=== PATIENT | male | born 1940 | race Caucasian/White ===

== ENCOUNTER 2017-10-03 11:56 | Inpatient (IN) | payer OTHER, MEDICARE ==
[~2017-10-03] VITALS: Ht 6374.2 cm; Wt 113.0 kg
[2017-10-03 15:24] LABS: BASOPHILS % (AUTO) 0.3 % (0-1); EOSINOPHILS # (AUTO) 0.4 X10'3 (0-0.9); EOSINOPHILS % (AUTO) 5.2 % (0-6); HEMATOCRIT 43.8 % (42.0-52.0); HEMOGLOBIN 14.7 g/dl (14.0-17.9); LYMPHOCYTES # (AUTO) 1.7 X10'3 (1.1-4.8); LYMPHOCYTES % (AUTO) 23.3 % (21-51); MEAN CORPUSCULAR HEMOGLOBIN 30.5 PG (27.0-31.0); MEAN CORPUSCULAR HGB CONC 33.6 % (33.0-36.5); MEAN CORPUSCULAR VOLUME 90.6 FL (78-98); MEAN PLATELET VOLUME 8.8 FL (7.4-10.4); MONOCYTES # (AUTO) 0.6 X10'3 (0-0.9); MONOCYTES % (AUTO) 8.3 % (2-12); NEUTROPHILS # (AUTO) 4.6 X10'3 (1.8-7.7); NEUTROPHILS % (AUTO) 62.9 % (42-75); PLATELET COUNT 216 X10'3 (140-440); RED BLOOD COUNT 4.83 X10'6 (4.70-6.10); RED CELL DISTRIBUTION WIDTH 13.8 % (11.5-14.5); WHITE BLOOD COUNT 7.3 X10'3 (4.5-11.0)
[2017-10-03 15:36] LABS: PARTIAL THROMBOPLASTIN TIME 26 SECONDS (22-32); PROTHROMBIN TIME 10.6 SECONDS (9.0-12.0)
[2017-10-03 15:42] LABS: ALANINE AMINOTRANSFERASE 32 U/L (12-78); ALBUMIN/GLOBULIN RATIO 0.8 (1.1-1.5); ALKALINE PHOSPHATASE 52 IU/L (46-116); ANION GAP 7 (8-16); ASPARTATE AMINO TRANSFERASE 20 U/L (10-37); BILIRUBIN,TOTAL 0.5 MG/DL (0.1-1.0); BLOOD UREA NITROGEN 15 MG/DL (7-18); BUN/CREATININE RATIO 14.4 (5.4-32.0); CALCIUM 8.9 MG/DL (8.5-10.1); CHLORIDE 106 MMOL/L (99-107); CREATININE 1.04 MG/DL (0.60-1.10); GLUCOSE 116 MG/DL (70-104); POTASSIUM 4.1 MMOL/L (3.5-5.1); SODIUM 143 MMOL/L (135-145); TOTAL CARBON DIOXIDE 29.6 MMOL/L (24-32); TOTAL PROTEIN 6.7 G/DL (6.4-8.2); eGFR 69 ML/MIN
[2017-10-03] MEDS ORDERED: HYDROmorphone inj. 0.5 MG/0.5 ML DISP.SYRIN IV PRN ×2 (18:05)
[2017-10-03] MEDS ORDERED: bisacodyl 10mg suppository rectal RC PRN (18:05)
[2017-10-03] MEDS ORDERED: insulin Lispro (HumaLOG) vial - multi-dose SQ SCH (18:05)
[2017-10-03] MEDS ORDERED: ondansetron/PF 4mg/2ml inj IV PRN (18:05)
[2017-10-03] MEDS ORDERED: mag hydrox/Alum hydrox/simeth 30ml oral suspension PO PRN (18:05)
[2017-10-03] MEDS ORDERED: HYDROcodone/acetaminophen 10/325mg tab PO PRN (18:05)
[2017-10-03] MEDS ORDERED: glucagon, human recombinant 1mg kit SUBCUT PRN (18:05)
[2017-10-03] MEDS ORDERED: heparin 10,000 units/1 ML INJ IV PRN (18:05)
[2017-10-03] MEDS ORDERED: dextrose ORAL solution 15 GM/59 ML bottle PO PRN ×2 (18:05)
[2017-10-03] MEDS ORDERED: morphine 4 MG/ML inj SYRINge IV PRN ×2 (18:05)
[2017-10-03] MEDS ORDERED: HYDROcodone/acetaminophen 5mg/325mg tablet PO PRN (18:05)
[2017-10-03] MEDS ORDERED: metoclopramide 5 mg/ml inj IV PRN (18:05)
[2017-10-03] MEDS ORDERED: MESSAGE TO PHARMACY PO ONE (18:05)
[2017-10-03] MEDS ORDERED: diphenhydrAMINE 25mg capsule PO PRN (18:05)
[2017-10-03] MEDS ORDERED: acetaminophen 650mg rectal suppository RC PRN (18:05)
[2017-10-03] MEDS ORDERED: magnesium hydroxide 30ml (MOM) UD suspension PO PRN (18:05)
[2017-10-03] MEDS ORDERED: heparin 10,000 units/1 ML INJ IV ONE (18:05)
[2017-10-03] MEDS ORDERED: acetaminophen 325mg tablet PO PRN (18:05)
[2017-10-03] MEDS ORDERED: diphenhydrAMINE 50 mg/ml inj IV PRN (18:05)
[2017-10-03] MEDS ORDERED: dextrose 50%-water 50ml dispensing syringe IV PRN ×2 (18:05)
[2017-10-03] MEDS: normal saline 1000ml 1,000 ML IV SCH (19:14)
[2017-10-03 19:16] LABS: MAGNESIUM 1.5 MG/DL (1.5-2.4)
[2017-10-03] MEDS ORDERED: temazepam 15mg capsule PO PRN (21:00)
[2017-10-03] MEDS: docusate sod 100mg capsule PO SCH (21:20)
[2017-10-03 21:32] LABS: CLARITY,URINE CLEAR (Clear); COLOR,URINE YELLOW (Yellow); GLUCOSE, URINE NEGATIVE (Neg); KETONES,URINE TRACE mg/dl (Neg); LEUKOCYTE ESTERASE ,URINE NEGATIVE (Neg); NITRITES, URINE NEGATIVE (Neg); OCCULT BLOOD,URINE NEGATIVE (Neg); PROTEIN,URINE NEGATIVE (Neg); UA COLLECTION TYPE NON-SPECIFIED; UROBILINOGEN,URINE 0.2 E.U/dL (0.2-1.0)
[2017-10-03] MEDS ORDERED: FURO-150 PO (22:14)
[2017-10-03] MEDS ORDERED: POTA10CA44 PO (22:14)
[2017-10-03] MEDS ORDERED: METO25TA6 PO (22:14)
[2017-10-03] MEDS ORDERED: METF500T4 PO (22:18)
[2017-10-03] MEDS ORDERED: TERA5CAP4 PO (22:20)
[2017-10-03] MEDS ORDERED: GLIP10TA11 PO (22:21)
[2017-10-03] MEDS ORDERED: GABA-532 PO (22:22)
[2017-10-03] MEDS ORDERED: OMEP20TA5 PO (22:24)
[2017-10-04 01:51] LABS: BASOPHILS % (AUTO) 0.3 % (0-1); EOSINOPHILS # (AUTO) 0.6 X10'3 (0-0.9); EOSINOPHILS % (AUTO) 7.9 % (0-6); HEMATOCRIT 41.3 % (42.0-52.0); LYMPHOCYTES # (AUTO) 2.8 X10'3 (1.1-4.8); LYMPHOCYTES % (AUTO) 33.9 % (21-51); MEAN CORPUSCULAR HEMOGLOBIN 30.9 PG (27.0-31.0); MEAN CORPUSCULAR HGB CONC 33.9 % (33.0-36.5); MEAN CORPUSCULAR VOLUME 91.1 FL (78-98); MEAN PLATELET VOLUME 9.3 FL (7.4-10.4); MONOCYTES # (AUTO) 0.8 X10'3 (0-0.9); MONOCYTES % (AUTO) 9.8 % (2-12); NEUTROPHILS # (AUTO) 3.9 X10'3 (1.8-7.7); NEUTROPHILS % (AUTO) 48.1 % (42-75); PLATELET COUNT 208 X10'3 (140-440); RED BLOOD COUNT 4.54 X10'6 (4.70-6.10); RED CELL DISTRIBUTION WIDTH 13.6 % (11.5-14.5); WHITE BLOOD COUNT 8.2 X10'3 (4.5-11.0)
[2017-10-04 01:54] LABS: ALANINE AMINOTRANSFERASE 30 U/L (12-78); ALBUMIN 2.7 G/DL (3.4-5.0); ALBUMIN/GLOBULIN RATIO 0.8 (1.1-1.5); ALKALINE PHOSPHATASE 48 IU/L (46-116); ANION GAP 6 (8-16); ASPARTATE AMINO TRANSFERASE 18 U/L (10-37); BILIRUBIN,TOTAL 0.4 MG/DL (0.1-1.0); BLOOD UREA NITROGEN 17 MG/DL (7-18); BUN/CREATININE RATIO 15.6 (5.4-32.0); CALCIUM 8.7 MG/DL (8.5-10.1); CHLORIDE 107 MMOL/L (99-107); CHOL/HDL RATIO 4.2 (0.00-4.99); CHOLESTEROL 154 MG/DL (0-200); CREATININE 1.09 MG/DL (0.60-1.10); GLUCOSE 134 MG/DL (70-104); HDL CHOLESTEROL 37 MG/DL (35-60); LDL CHOLESTEROL 97 MG/DL (50-100); POTASSIUM 4.2 MMOL/L (3.5-5.1); SODIUM 143 MMOL/L (135-145); TOTAL CARBON DIOXIDE 29.9 MMOL/L (24-32); TRIGLYCERIDES 98 MG/DL (20-135); eGFR 65 ML/MIN
[2017-10-04 02:00] VITALS: BP 120/87
[2017-10-04 02:01] LABS: INR 1.1 INR; PROTHROMBIN TIME 11.2 SECONDS (9.0-12.0)
[2017-10-04] MEDS: normal saline 1000ml 1,000 ML IV SCH ×3 (04:42→21:15)
[2017-10-04 07:30] VITALS: BP 151/84
[2017-10-04] MEDS: docusate sod 100mg capsule PO SCH ×3 (07:52→20:24)
[2017-10-04] MEDS: pantoprazole 40mg Tablet.DR PO SCH (07:53)
[2017-10-04] MEDS: gabapentin 300mg capsule PO SCH (17:45)
[2017-10-04 19:45] VITALS: BP 170/89
[2017-10-04] MEDS: metoprolol tartrate 25mg tablet PO SCH (20:25)
[2017-10-04 21:00] VITALS: BP 141/67
[2017-10-04] MEDS ORDERED: terazosin 5mg capsule PO SCH (21:00)
[2017-10-05] VITALS: BP 140/85
[2017-10-05] MEDS: gabapentin 300mg capsule PO SCH ×3 (00:12→16:00)
[2017-10-05 04:47] LABS: BASOPHILS % (AUTO) 0.6 % (0-1); EOSINOPHILS # (AUTO) 0.5 X10'3 (0-0.9); EOSINOPHILS % (AUTO) 7.7 % (0-6); HEMATOCRIT 40.8 % (42.0-52.0); HEMOGLOBIN 13.8 g/dl (14.0-17.9); LYMPHOCYTES # (AUTO) 2.2 X10'3 (1.1-4.8); MEAN CORPUSCULAR HEMOGLOBIN 30.7 PG (27.0-31.0); MEAN CORPUSCULAR HGB CONC 33.8 % (33.0-36.5); MEAN CORPUSCULAR VOLUME 90.8 FL (78-98); MEAN PLATELET VOLUME 10.1 FL (7.4-10.4); MONOCYTES # (AUTO) 0.6 X10'3 (0-0.9); MONOCYTES % (AUTO) 9.5 % (2-12); NEUTROPHILS # (AUTO) 3.4 X10'3 (1.8-7.7); NEUTROPHILS % (AUTO) 50.2 % (42-75); PLATELET COUNT 192 X10'3 (140-440); RED BLOOD COUNT 4.49 X10'6 (4.70-6.10); RED CELL DISTRIBUTION WIDTH 13.9 % (11.5-14.5); WHITE BLOOD COUNT 6.8 X10'3 (4.5-11.0)
[2017-10-05 05:09] LABS: INR 1.1 INR; PARTIAL THROMBOPLASTIN TIME 59 SECONDS (22-32); PROTHROMBIN TIME 11.4 SECONDS (9.0-12.0)
[2017-10-05 05:25] LABS: ALANINE AMINOTRANSFERASE 28 U/L (12-78); ALBUMIN 2.6 G/DL (3.4-5.0); ALBUMIN/GLOBULIN RATIO 0.8 (1.1-1.5); ALKALINE PHOSPHATASE 43 IU/L (46-116); ANION GAP 9 (8-16); ASPARTATE AMINO TRANSFERASE 19 U/L (10-37); BILIRUBIN,TOTAL 0.5 MG/DL (0.1-1.0); BLOOD UREA NITROGEN 16 MG/DL (7-18); BUN/CREATININE RATIO 13.3 (5.4-32.0); CALCIUM 8.6 MG/DL (8.5-10.1); CHLORIDE 106 MMOL/L (99-107); GLUCOSE 115 MG/DL (70-104); POTASSIUM 3.9 MMOL/L (3.5-5.1); SODIUM 143 MMOL/L (135-145); TOTAL CARBON DIOXIDE 28.3 MMOL/L (24-32); eGFR 59 ML/MIN
[2017-10-05] MEDS: normal saline 1000ml 1,000 ML IV SCH (06:50)
[2017-10-05] MEDS: metoprolol tartrate 25mg tablet PO SCH (07:49)
[2017-10-05] MEDS: pantoprazole 40mg Tablet.DR PO SCH (07:49)
[2017-10-05] MEDS: docusate sod 100mg capsule PO SCH (07:50)
[2017-10-05 08:00] VITALS: BP 149/76
[2017-10-05] MEDS ORDERED: pantoprazole 40mg Tablet.DR PO SCH (08:00)
[2017-10-05] MEDS ORDERED: rivaroxaban 15mg tablet PO ONE (09:00)
[2017-10-05] MEDS ORDERED: RIVA15TA PO (11:16)
[2017-10-05 12:00] VITALS: BP 144/73
== END 2017-10-05 20:36 | disposition home or self-care (01) | DRG 300 ==
LOC: ER 11:57 → ED HOLD 18:05 → SUR 3N 10-04 01:40
PROVIDERS: ADMIT Family Medicine; ATTEND Family Medicine
DX: I82.401 Acute embolism and thrombosis of unspecified deep veins of right lower extremity (principal); D68.59 Other primary thrombophilia; E11.9 Type 2 diabetes mellitus without complications; I10 Essential (primary) hypertension
CPT/HCPCS: 36415; 80053; 80061; 81003; 82948; 83036; 83735; 83880; 85025; 85610; 85730; 87070; 93005; 93971; 99285; J1644; J7030; Q0163

== ENCOUNTER 2019-08-12 15:42 | Emergency (ER) | payer MEDICARE, OTHER ==
[~2019-08-12] VITALS: Ht 193 cm; Wt 113.6 kg
[~2019-08-12 15:42] MED LIST: GABA-532 PO; GLIP10TA11 PO; LIDOcaine 1% W/epiNEPHrine 1:100,000 20ml vial ONE; METF-436 PO; METO25TA6 PO; OMEP20TA5 PO; TERA5CAP4 PO
[2019-08-12 16:01] VITALS: BP 142/70
[2019-08-12] MEDS ORDERED: morphine 4 MG/ML inj SYRINge IV ONE (18:05)
[2019-08-12] MEDS ORDERED: ondansetron/PF 4mg/2ml inj IV ONE (18:05)
[2019-08-12] MEDS ORDERED: TETanus/Pertussis (Acell)/Diphther VAC/PF (Tdap-Adult) 0.5ml syringe IMVAC ONE (18:05)
[2019-08-12] MEDS ORDERED: ceFAZolin 1000mg inj IM STA (18:27)
[2019-08-12] MEDS ORDERED: AMOX-580 PO (18:54)
[2019-08-12] MEDS ORDERED: HYDR-3965 PO (18:56)
[2019-08-12] MEDS ORDERED: DOCU100C41 PO (18:58)
[2019-08-12] MEDS ORDERED: cefazolin/dext.iso 2gm/100ml 100 ML IV ONE (19:20)
== END 2019-08-12 20:08 | disposition home or self-care (01) ==
LOC: ER 15:42
DX: S81.002A Unspecified open wound, left knee, initial encounter (principal); M79.651 Pain in right thigh; I10 Essential (primary) hypertension; E11.9 Type 2 diabetes mellitus without complications; Z98.890 Other specified postprocedural states; Z79.899 Other long term (current) drug therapy; X50.1XXA Overexertion from prolonged static or awkward postures, initial encounter; Y93.89 Activity, other specified; Y92.89 Other specified places as the place of occurrence of the external cause; Y99.9 Unspecified external cause status
CPT/HCPCS: 64450; 73564; 90471; 90715; 96365; 96375; 99284; J2270; J2405; 96374; J0690

== ENCOUNTER → 2021-02-24 | Outpatient (CLI) | payer OTHER, MEDICARE ==
[~2021-02-24] MED LIST changes: +ALBU8.5H8 INH; +APIX5TAB3 PO; +ATOR10TA70 PO; +FINA5TAB11 PO; +FLO0.4C PO; +FURO-150 PO; +LEVO500T89 PO; -LIDOcaine 1% W/epiNEPHrine 1:100,000 20ml vial ONE; +LOSA100T57 PO; +MAGN400T28 PO; -METF-436 PO; +METF-516 PO; +METO200T49 PO; -METO25TA6 PO; +METR-159 PO; +POTA-82 PO; -TERA5CAP4 PO
== END | disposition home or self-care (01) ==
LOC: RAD 09:33
PROVIDERS: ATTEND Internal Medicine
DX: K11.3 Abscess of salivary gland (principal)
CPT/HCPCS: 76536

== ENCOUNTER 2024-09-17 11:31 | Emergency (ER) | payer OTHER, MEDICARE ==
[~2024-09-17] VITALS: Ht 193 cm; Wt 82.7 kg
[~2024-09-17 11:31] MED LIST changes: +ALBU8.5H17 INH; -ALBU8.5H8 INH; -GLIP10TA11 PO; +GLIP10TA18 PO; -LEVO500T89 PO; -LOSA100T57 PO; +LOSA100T58 PO; -MAGN400T28 PO; +MAGN400T56 PO; +METO200T37 PO; -METO200T49 PO; -METR-159 PO; +OMEP20TA43 PO; -OMEP20TA5 PO; +POTA-366 PO; -POTA-82 PO
[2024-09-17 13:59] LABS: BASOPHILS % (AUTO) 0.5 % (0-1); EOSINOPHILS # (AUTO) 0.5 X10'3 (0-0.9); EOSINOPHILS % (AUTO) 4.9 % (0-6); HEMOGLOBIN 13.8 g/dl (14.0-17.9); LYMPHOCYTES % (AUTO) 10.7 % (21-51); MEAN CORPUSCULAR HEMOGLOBIN 30.3 PG (27.0-31.0); MEAN CORPUSCULAR HGB CONC 32.8 g/dL (33.0-36.5); MEAN CORPUSCULAR VOLUME 92.4 FL (78-98); MEAN PLATELET VOLUME 9.4 FL (7.4-10.4); MONOCYTES # (AUTO) 0.9 X10'3 (0-0.9); NEUTROPHILS # (AUTO) 7.1 X10'3 (1.8-7.7); NEUTROPHILS % (AUTO) 74.9 % (42-75); PLATELET COUNT 257 X10'3 (140-440); RED BLOOD COUNT 4.54 X10'6 (4.70-6.10); RED CELL DISTRIBUTION WIDTH 14.1 % (11.5-14.5); WHITE BLOOD COUNT 9.5 X10'3 (4.5-11.0)
[2024-09-17 14:14] LABS: INR 1.1 INR
[2024-09-17 14:18] LABS: ALANINE AMINOTRANSFERASE 59 U/L (12-78); ALBUMIN/GLOBULIN RATIO 0.8 (1.1-1.5); ALKALINE PHOSPHATASE 133 IU/L (46-116); ANION GAP 6 (8-16); ASPARTATE AMINO TRANSFERASE 20 U/L (10-37); BILIRUBIN,TOTAL 0.3 MG/DL (0.1-1.0); BLOOD UREA NITROGEN 33 MG/DL (7-18); BUN/CREATININE RATIO 22.4 (10.0-20.0); CALCIUM 9.8 MG/DL (8.5-10.1); CHLORIDE 106 MMOL/L (99-107); CREATININE 1.47 MG/DL (0.60-1.10); GLUCOSE 287 MG/DL (70-104); POTASSIUM 4.5 MMOL/L (3.5-5.1); PRO BRAIN NATRIURETIC PEPTIDE 1335 PG/ML (0-450); SODIUM 140 MMOL/L (135-145); TOTAL CARBON DIOXIDE 27.6 MMOL/L (24-32); eCRCL 43 ML/MIN; eGFR 46 ML/MIN
[2024-09-17 17:30] VITALS: BP 160/99; PULSE 70; RESP 17; O2SAT 98
[2024-09-17 17:39] VITALS: BP 166/102; PULSE 70; RESP 16; O2SAT 96
[2024-09-17 18:49] VITALS: BP 132/74; PULSE 72; RESP 16; TEMP 97.8; O2SAT 98
== END 2024-09-17 18:51 | disposition home or self-care (01) ==
LOC: ER 11:31
DX: J90 Pleural effusion, not elsewhere classified (principal); R06.02 Shortness of breath; E78.00 Pure hypercholesterolemia, unspecified; I11.0 Hypertensive heart disease with heart failure; I50.9 Heart failure, unspecified; E11.9 Type 2 diabetes mellitus without complications; Z79.899 Other long term (current) drug therapy
CPT/HCPCS: 32555; 36415; 71046; 80053; 83880; 85025; 85610; 99285